=== PATIENT | female | born 1950 | race Hispanic/Latino ===

== ENCOUNTER 2018-02-21 10:38 | Outpatient (CLI) | payer MEDICARE ==
--- NOTE | 2018-02-21 14:17 | Mammography Report ---
LEFT DIGITAL DIAGNOSTIC MAMMOGRAM with CAD and LEFT BREAST ULTRASOUND: 02/21/18 10:38:00 CLINICAL: A left palpable breast lump. COMPARISON:07/11/17 and 07/09/16 mammograms FINDINGS: A 1.2 cm spiculated mass is new compared to the prior exam and is roughly in the vicinity of the palpable marker.No other mass, architectural distortion or suspicious calcifications. Ultrasound of the upper outer left breast was performed and demonstrated a heterogeneous solid hypoechoic irregular shadowing mass at 2 o'clock 5 cm from the nipple. It measures 1.0 x 0.8 x 0.7 cm and correlates with the mammographic mass. I could not detect a mass by palpation. Ultrasound of the left axilla demonstrated a lymph node with central fat and benign morphology measuring 1.3 x 0.6 x 0.9 cm. No suspicious lymph nodes. IMPRESSION: A highly suspicious 1 cm left breast mass at 2 o'clock 5 cm from the nipple. BI-RADS CATEGORY: 5 - - Highly Suggestive of Malignancy RECOMMENDATION: Ultrasound guided needle core biopsy of the left breast. I discussed the findings and the recommendation for needle core biopsy with the patient at the time of the examination. ACR BI-RADS MAMMOGRAPHIC CODES: 0 = Needs additional imaging evaluation; 1 = Negative; 2 = Benign; 3 = Probably benign; 4 = Suspicious; 5 = Malignant; 6 = Known biopsy-proven malignancy COMMENT: 1. Dense breast tissue, i.e., adenosis, fibrocystic changes, etc., may obscure an underlying neoplasm. 2. Approximately 10% of cancers are not detected with mammography. 3. A negative mammography report should not delay biopsy if a clinically suspicious mass is present. COMMENT: Patient follow-up letters are generated by our [employer] application.
== END 2018-02-21 10:39 | disposition home or self-care (01) ==
LOC: SPVWC 10:38
PROVIDERS: ATTEND Obstetrics & Gynecology
DX: R92.8 Other abnormal and inconclusive findings on diagnostic imaging of breast (principal)
CPT/HCPCS: 77066

== ENCOUNTER 2018-03-02 13:56 | Outpatient (CLI) | payer MEDICARE ==
--- NOTE | 2018-03-02 16:17 | Mammography Report ---
LEFT DIGITAL DIAGNOSTIC MAMMOGRAM: 03/02/18 13:56:00 CLINICAL: For clip placement immediately status post ultrasound biopsy. COMPARISON:Mass at 2 o'clock 5 cm from the nipple. FINDINGS: A biopsy clip is now identified at 2 o'clock correlating with the previously described mass. Injected lidocaine obscures the margins of the mass. IMPRESSION: Concordant clip placement status post ultrasound biopsy. BI-RADS CATEGORY: 4--Suspicious Pathology pending.
--- NOTE | 2018-03-02 16:18 | Ultrasound Report ---
ULTRASOUND GUIDED NEEDLE CORE BIOPSY LEFT BREAST WITH CLIP PLACEMENT: 03/02/18 CLINICAL: Mass at 2 o'clock 5 cm from the nipple. COMPARISON :02/21/18 FINDINGS: The procedure was explained to the patient and informed consent was obtained. Ultrasound demonstrated the previously described shadowing irregular 1 cm mass at 2 o'clock.. I marked the breast with a felt tip marker and a time out was called. The skin was prepped with Betadine and anesthetized with 1% lidocaine. Needle core biopsy was performed through a tiny dermatotomy using ultrasound guidance, 2% lidocaine with epinephrine for deep anesthesia and a 14-gauge Achieve biopsy device. 4 cores were obtained and placed in formalin. A hydro-xin clip was deployed within the mass. The patient tolerated the procedure well and there were no apparent complications. Hemostasis was achieved with minimal pressure and a sterile dressing was applied. A two view mammogram demonstrated concordant placement of the clip. She left the department in good condition and was given instructions for wound care and followup. IMPRESSION: Uncomplicated ultrasound guided needle core biopsy with clip placement left breast.
== END 2018-03-02 13:57 | disposition home or self-care (01) ==
LOC: SPVWC 13:56
PROVIDERS: ATTEND Obstetrics & Gynecology
DX: C50.912 Malignant neoplasm of unspecified site of left female breast (principal)
CPT/HCPCS: 88305; 88342; 88361

== ENCOUNTER 2018-03-20 15:24 | Outpatient (CLI) | payer MEDICARE ==
--- NOTE | 2018-03-21 09:38 | Magnetic Resonance Report ---
BILATERAL BREAST MRI WITHOUT AND WITH CONTRAST: 03/20/18 15:24:00 CLINICAL: Newly diagnosed left breast cancer. 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 COMPARISON:02/21/18 and 07/11/17 mammograms. TECHNIQUE: Axial 1.0-mm T1 without, axial high resolution 2.0-mm T2 and axial 1.0-mm dynamic Vibrant high-resolution postcontrast T1 fat saturation sequences on a 1.5 Malina magnet. The examination was performed with an 8 channel dedicated [place] breast coil. Post processing with CAD and subtraction was performed on an [employer] workstation. 18.0 cc of Multihance was injected without incident for the contrast portion of the exam. Consent was obtained prior to the administration of the contrast. FINDINGS: Right: Minimal background parenchymal enhancement. No mass or suspicious enhancement. No suspicious right axillary or right internal mammary lymph nodes. Left: Minimal background parenchymal enhancement. The known cancer is an irregular enhancing mass in the upper-outer quadrant 5.8 cm from the nipple measuring 17.1 x 13.9 x 8.5 mm. It demonstrates heterogeneous enhancement with mixed kinetics, 607% peak enhancement, 33% type I persistent, 64% type II plateau and 3% type III washout waveforms. A hydro-Jamarcus biopsy clip is identified adjacent to the mass. No other mass or suspicious enhancement. No suspicious left axillary or left internal mammary lymph nodes. IMPRESSION: Known 17.1 mm left breast cancer and no additional suspicious lesion of either breast. No suspicious lymph nodes. RIGHT BI-RADS 1 -- Negative LEFT BI-RADS 6 -- Known Cancer
== END 2018-03-20 15:25 | disposition home or self-care (01) ==
LOC: SPVIMAG 15:24
PROVIDERS: ATTEND Surgery
DX: C50.912 Malignant neoplasm of unspecified site of left female breast (principal)
CPT/HCPCS: A9577; C8908; 77059

== ENCOUNTER 2018-04-03 09:00 | Day surgery (SDC) | payer MEDICARE ==
[2018-04-03] MEDS ORDERED: NACL BACTERIOSTATIC INFILTRATI ONE (10:05)
[2018-04-03 10:26] LABS: Hematocrit 41.2 % (30.3-42.9); Hemoglobin 14.1 gm/dl (10.1-14.3)
[2018-04-03] MEDS ORDERED: ZOFRAN IV PRN (10:30)
[2018-04-03] MEDS ORDERED: TORADOL IV PRN (10:30)
[2018-04-03] MEDS ORDERED: DILAUDID IV PRN (10:30)
--- NOTE | 2018-04-03 10:30 | Anesthesia Consultation ---
Anesthesia Consult and Med Hx Date of service: 04/03/18 - Airway Anesthetic Teeth Evaluation: Good ROM Head & Neck: Adequate Mental/Hyoid Distance: Adequate Mallampati Class: Class II Intubation Access Assessment: Probably Good - Pulmonary Exam CTA: Yes - Cardiac Exam Cardiac Exam: RRR - Pre-Operative Health Status ASA Pre-Surgery Classification: ASA3 Proposed Anesthetic Plan: General Nerve Block: nerve block preop - Cardiovascular System Hx Hypertension: Yes - Central Nervous System Hx Psychiatric Problems: No - Endocrine Hx Non-Insulin Dependent Diabetes: Yes - Other Systems Hx Alcohol Use: Yes (OCCA) Hx Substance Use: No Hx Cancer: Yes (breast cancer)
[2018-04-03] MEDS ORDERED: XYLOCAINE 1% 20 mL ONE ×2 (10:34→17:30)
--- NOTE | 2018-04-03 10:59 | Procedure Note ---
Date of procedure: 04/03/18 Pre-op diagnosis: lt. breast lesion Post-op diagnosis: same Procedure: needle loc Findings: marker Anesthesia: local Surgeon: CHARY CHAVEZ Estimated blood loss: minimal Pathology: none Condition: stable Disposition: same day
[2018-04-03] MEDS ORDERED: ANCEF/STERILE WATER 2 GM/20 ML IV NR (11:00)
[2018-04-03] MEDS ORDERED: NACL 0.9% 1000 ML 1,000 ML IV SCH (11:00)
--- NOTE | 2018-04-03 11:05 | Mammography Report ---
Left breast needle localization: The patient presents with a marker in the lateral left breast. A lateral approach was utilized under mammographic grid technique. The skin was cleansed and 1% lidocaine used for local anesthesia. A 5 cm Santamaria needle was introduced using mammogram for position confirmation. A wire was introduced with removal of the needle and additional mammography to confirm position. Minimal bleeding at the entrance site was noted easily controlled with compression. No other complication.
--- NOTE | 2018-04-03 12:12 | Anesthesia Day of Surgery ---
Anesthesia Day of Surgery - Day of Surgery Patient Examined: Yes Patient H&P Reviewed: Yes Patient is NPO: Yes
--- NOTE | 2018-04-03 13:42 | Short Stay Summary ---
Short Stay Documentation Date of service: 04/03/18 - History H&P: obtained from office - Allergies and Medications Current Medications: Allergies benzoyl peroxide Allergy (Verified 03/31/18 13:26) Rash Home Medications Medication Instructions Recorded Confirmed Last Taken Type Atorvastatin Calcium 20 mg PO DAILY 03/31/18 04/03/18 03/31/18 History Cholecalciferol (Vitamin D3) 1,000 unit PO DAILY 03/31/18 04/03/18 03/27/18 History [Vitamin D3] Metformin HCl [Metformin HCl ER] 750 mg PO BID 03/31/18 04/03/18 03/30/18 History Active Medications Cefazolin Sodium (Ancef/Sterile Water 2 Gm/20 Ml) 2 gm IV PREOP NR Stop: 04/03/18 23:59 Hydromorphone HCl (Dilaudid) 0.5 mg IV Q10MIN PRN PRN Reason: Pain , Severe (7-10) Stop: 04/03/18 23:59 Sodium Chloride (Nacl 0.9% 1000 Ml) 1,000 mls @ 42 mls/hr IV DIRECT IVANNA Last Admin: 04/03/18 11:16 Dose: 42 mls/hr Ketorolac Tromethamine (Toradol) 30 mg IV ONCE PRN PRN Reason: Pain, Moderate (4-6) Ondansetron HCl (Zofran) 4 mg IV ONCE PRN PRN Reason: Nausea And Vomiting - Brief post op/procedure progress note Date of procedure: 04/03/18 Pre-op diagnosis: Left breast cancer of the upper outer quadrant Post-op diagnosis: same Procedure: Left needle localization partial mastectomy with SLNB Anesthesia: GETA Findings: Left wire and clip present; x1 SLN Surgeon: CECILE RAND Estimated blood loss: minimal Pathology: list (left partial mastectomy and SLNs x) Specimen disposition: to lab Condition: stable - Disposition Condition at discharge: Good Disposition: DC-01 TO HOME OR SELFCARE Short Stay Discharge Plan Activity: other (no heavy lifting) Diet: regular Wound: other (keep incision clean and dry; may shower in 24 hours; no baths, pools or lakes; do not rub or scrub incision; wear breast binder) Follow up with: MARGA HARRIS MD [Primary Care Provider] - 7 Days CECILE RAND MD [Staff Physician] - 7 Days Prescriptions: HYDROcodone/APAP 5-325 [[place] 5/325] 1 each PO Q6HR PRN #30 tablet PRN Reason: Pain
--- NOTE | 2018-04-03 13:45 | Operative Report ---
Operative Report Operative Report: April 03, 2018 Preoperative diagnosis: Left breast cancer of the upper outer quadrant Postoperative diagnosis: Same Procedure: Left needle localization partial mastectomy of the upper outer quadrant and SLNB Surgeon: Medina Hunt MD Anesthesia: General Findings: Left wire and clip present within radiograph specimen; x 1 SLN Complications: None EBL: Minimal Disposition: PACU in good condition Indications for operative procedure: This is a 67 year old lady with newly diagnosed left breast cancer of the upper outer quadrant, Stage I [id number] ER/ DE positive. Recommendations are to proceed with breast conservation. She understands the role of adjuvant radiation therapy and Oncotype DX will be obtained by Dr. Ramires. She wished to proceed with the above procedure. Procedure in detail: The patient was taken to radiology for wire placement for localization known area of cancer. Patient was then taken to the operating room. Gen. anesthesia was administered. The left nipple was injected with radioisotope. and 1 cc of metheleyne blue with 1 cc of saline. The left breast and axilla were prepped and draped in the normal sterile operative fashion. The wire was identified. Timeout was performed. Gamma probe was inserted into the axilla. The area of hot spot was identified. A left axillary incision was made with a 15 blade knife with dissection taken down to the subcutaneous tissues. The axillary fascia was opened with the Bovie cautery. 1 SLN was identified with blue dye present. All remaining counts were less than 10% of the highest count. Lymph nodes were sent to pathology for permanent processing. Hemostasis was obtained in the left axillary cavity. Axillary cavity was appropriately irrigated and suctioned. The axillary cavity was anesthetized with 1% lidocaine mixed with quarter percent Marcaine. Hemostasis was noted. Axillary fascia was approximated and closed using interrupted 3-0 Vicryl and the skin brought together and closed using a running 4-0 Monocryl followed by skin affix. Attention was then taken towards the left breast. Lateral breast incision was made with a 15 blade knife and dissection taken down to subcutaneous tissues. First began raising of the lateral flap with removal of the wire from the skin with dissection take down to the pectoralis muscle, followed by raising of the medial flap, superior flap and inferior flap with all flaps taken down to the pectoralis muscle. The breast area of concern was appropriately removed posteriorly from the pectoralis muscle with the aid of the Bovie cautery. The wire was not encountered. Specimen was marked and then sent to pathology and radiology; radiograph speciment with wire and clip present. Breast cavity was irrigated and hemostasis was obtained. The breast cavity was anesthetized with 1 % lidocaine mixed with quarter percent Marcaine. The posterior deep breast tissues were approximated and closed using interrupted 3-0 Vicryl. The subcutaneous tissues were approximated and closed using interrupted 3-0 Vicryl followed by closing of the skin with a running 4-0 Monocryl and skin affix. The patient tolerated surgery very well and she was awaken from anesthesia without any complication and transported to PACU in good condition.
[2018-04-03] MEDS ORDERED: D50W (25GM) Syringe IV ONE (15:09)
[2018-04-03] MEDS ORDERED: VERSED IV NR (16:00)
[2018-04-03] MEDS ORDERED: XYLOCAINE MPF 2% ONE (16:20)
[2018-04-03] MEDS ORDERED: DILAUDID ONE ×2 (16:20→18:37)
[2018-04-03] MEDS ORDERED: DIPRIVAN 10 MG/ML IV ONE (16:20)
[2018-04-03] MEDS ORDERED: METHYLENE BLUE ONE (17:31)
[2018-04-03] MEDS ORDERED: MARCAINE 0.25% INFILTRATI ONE ×2 (17:31→17:54)
[2018-04-03] MEDS ORDERED: XYLOCAINE 1% 20 mL INFILTRATI ONE (17:54)
[2018-04-03] MEDS ORDERED: ZOFRAN ONE (19:24)
[2018-04-03] MEDS ORDERED: NACL 0.9% 1000 ML 1,000 ML ONE (19:24)
[2018-04-03 21:34] VITALS: BP 157/78
--- NOTE | 2018-04-04 08:18 | XRay Report ---
SPECIMEN RADIOGRAPH LEFT BREAST: 04/03/18 09:00:00 CLINICAL: Surgical excision of a cancer. FINDINGS: The targeted lesion with a localizer clip and the hookwire are identified within the specimen. IMPRESSION: Excision of the targeted lesion.
== END 2018-04-03 09:01 | disposition home or self-care (01) ==
LOC: OR 09:00
PROVIDERS: ATTEND Surgery
DX: C50.412 Malignant neoplasm of upper-outer quadrant of left female breast (principal); I10 Essential (primary) hypertension; E11.9 Type 2 diabetes mellitus without complications; Z72.89 Other problems related to lifestyle; E78.5 Hyperlipidemia, unspecified; E55.9 Vitamin D deficiency, unspecified; Z79.84 Long term (current) use of oral hypoglycemic drugs; Z79.899 Other long term (current) drug therapy; Z88.8 Allergy status to other drugs, medicaments and biological substances; Z98.890 Other specified postprocedural states; Z80.3 Family history of malignant neoplasm of breast; Z82.49 Family history of ischemic heart disease and other diseases of the circulatory system; Z83.49 Family history of other endocrine, nutritional and metabolic diseases; Z80.0 Family history of malignant neoplasm of digestive organs
CPT/HCPCS: 19281; 19301; 36415; 38525; 38900; 76098; 82962; 85014; 85018; 88305; 88307; 88342; A9541; J0690; J1170; J2250; J2405; J2704; J7030; Q9968; 78800

== ENCOUNTER 2018-04-26 06:10 | Day surgery (SDC) | payer MEDICARE ==
[2018-04-26] MEDS ORDERED: DIPRIVAN 10 MG/ML IV ONE (07:12)
[2018-04-26] MEDS ORDERED: XYLOCAINE MPF 2% ONE (07:12)
[2018-04-26] MEDS ORDERED: ZOFRAN ONE (07:15)
[2018-04-26] MEDS ORDERED: DECADRON ONE (07:15)
[2018-04-26] MEDS ORDERED: DILAUDID ONE (07:15)
--- NOTE | 2018-04-26 07:43 | Anesthesia Day of Surgery ---
Anesthesia Day of Surgery - Day of Surgery Patient Examined: Yes Patient H&P Reviewed: Yes Patient is NPO: Yes
--- NOTE | 2018-04-26 07:44 | Anesthesia Consultation ---
Anesthesia Consult and Med Hx Date of service: 04/26/18 - Airway Anesthetic Teeth Evaluation: Good ROM Head & Neck: Adequate Mental/Hyoid Distance: Adequate Mallampati Class: Class I Intubation Access Assessment: Good - Pulmonary Exam CTA: Yes - Cardiac Exam Cardiac Exam: RRR - Pre-Operative Health Status ASA Pre-Surgery Classification: ASA3 Proposed Anesthetic Plan: General (GA with LMA ok, pt is diabetic, denies issues with GERD) - Cardiovascular System Hx Hypertension: Yes - Central Nervous System Hx Psychiatric Problems: No - Endocrine Hx Non-Insulin Dependent Diabetes: Yes - Other Systems Hx Alcohol Use: Yes (OCCA) Hx Substance Use: No Hx Cancer: Yes
[2018-04-26] MEDS ORDERED: ZOFRAN IV PRN (08:00)
[2018-04-26] MEDS ORDERED: ANCEF/STERILE WATER 2 GM/20 ML IV NR (08:00)
[2018-04-26] MEDS ORDERED: TORADOL IV PRN (08:00)
[2018-04-26] MEDS ORDERED: VERSED IV NR (08:00)
[2018-04-26] MEDS ORDERED: DILAUDID IV PRN (08:00)
[2018-04-26] MEDS ORDERED: LACTATED RINGERS 1,000 ML IV SCH (08:00)
[2018-04-26] MEDS ORDERED: XYLOCAINE 1% 20 mL ONE (08:05)
[2018-04-26] MEDS ORDERED: MARCAINE 0.25% INFILTRATI ONE ×3 (08:05→09:02)
[2018-04-26] MEDS ORDERED: XYLOCAINE 1% 20 mL INFILTRATI ONE ×2 (09:02)
[2018-04-26] MEDS ORDERED: WATER FOR IRRIG STERILE IR ONE (09:02)
--- NOTE | 2018-04-26 09:50 | Short Stay Summary ---
Short Stay Documentation Date of service: 04/26/18 - History H&P: obtained from office - Allergies and Medications Current Medications: Allergies benzoyl peroxide Allergy (Verified 04/24/18 11:13) Rash Home Medications Medication Instructions Recorded Confirmed Last Taken Type Atorvastatin Calcium 20 mg PO DAILY 03/31/18 04/26/18 1 Week Ago History ~04/19/18 Cholecalciferol (Vitamin D3) 1,000 unit PO DAILY 03/31/18 04/26/18 2 Weeks Ago History [Vitamin D3] ~04/12/18 Metformin HCl [Metformin HCl ER] 750 mg PO BID 03/31/18 04/26/18 1 Week Ago History ~04/19/18 HYDROcodone/APAP 5-325 [[place] 1 each PO Q6HR PRN #30 tablet 04/03/18 04/26/18 1 Week Ago Rx 5/325] ~04/19/18 Active Medications Cefazolin Sodium (Ancef/Sterile Water 2 Gm/20 Ml) 2 gm IV PREOP NR Stop: 04/26/18 15:00 Hydromorphone HCl (Dilaudid) 0.5 mg IV Q10MIN PRN PRN Reason: Pain , Severe (7-10) Stop: 04/26/18 15:00 Lactated Ringer's (Lactated Ringers) 1,000 mls @ 100 mls/hr IV DIRECT IVANNA Last Admin: 04/26/18 07:49 Dose: 100 mls/hr Ketorolac Tromethamine (Toradol) 30 mg IV ONCE PRN PRN Reason: Pain, Moderate (4-6) Stop: 04/26/18 13:00 Midazolam HCl (Versed) 2 mg IV PREOP NR Stop: 04/26/18 23:59 Last Admin: 04/26/18 07:51 Dose: 2 mg Ondansetron HCl (Zofran) 4 mg IV ONCE PRN PRN Reason: Nausea And Vomiting Stop: 04/26/18 15:00 - Brief post op/procedure progress note Date of procedure: 04/26/18 Pre-op diagnosis: Left breast cancer of the lower outer quadrant, close margin Post-op diagnosis: same Procedure: Left breast margin revision Anesthesia: GETA Findings: Left inferior breast margin revision Surgeon: CECILE RAND Estimated blood loss: minimal Pathology: list (left inferior margin revision) Specimen disposition: to lab Condition: stable - Disposition Condition at discharge: Good Disposition: DC-01 TO HOME OR SELFCARE Short Stay Discharge Plan Activity: other (no heavy lifting) Diet: regular Wound: other (keep incision clean and dry, may shower in 30 hours; no baths, pools or lakes; do not rub or scrub incision; wear breast binder or sports bra) Follow up with: MARGA HARRIS MD [Primary Care Provider] - 7 Days CECILE RAND MD [Staff Physician] - 7 Days
--- NOTE | 2018-04-26 09:54 | Operative Report ---
Operative Report Operative Report: Operative Report Operative Report: Date of Service: April 26, 2018 Preoperative diagnosis: Left breast cancer of the lower outer quadrant with close inferior margin Postoperative diagnosis: Same Procedure: Left breast margin revision of the inferior margin Surgeon: Medina Hunt M.D. Anesthesia: Gen. Findings: Inferior margin revised Complications: None Drains: None Estimated blood loss: Minimal Indications for operative procedure: This is a 67-year-old lady with stage I left breast cancer of the lower outer quadrant who recently underwent left partial mastectomy with sentinel lymph node biopsy with findings of inferior margin of DCIS 1.1 mm margin. Recommendations are to proceed with inferior margin revision. Patient wished to proceed with the above procedure. Procedure in detail: The patient was taken to the operating room. Genernal anesthesia was administer. The left breast was prepped and draped in the normal sterile operative fashion. A skin incision was made at prior left lower outer quadrant breast incision. Subcutuaneous tissues were opened. Seroma cavity was encountered and drained. Inferior margin was revised. The breast cavity was anesthetized with 1% lidocaine mixed with quarter percent Marcaine. The posterior breast tissues were approximated and closed using interrupted 3-0 Vicryl and skin brought together nicely and closed using a running 4-0 Monocryl followed by skin affix. She tolerated surgery very well and was awakened from anesthesia without any complications and transferred to PACU in good condition.
[2018-04-26] MEDS ORDERED: NORCO 7.5/325 PO PRN (10:30)
[2018-04-26 10:46] VITALS: BP 137/75
--- NOTE | 2018-04-26 16:52 | Post Anesthesia Evaluation ---
- Post Anesthesia Evaluation Patient Participated: Yes Airway Patent: Yes Stable Respiratory Function: Yes Nausea/Vomiting: No Temp > 96.8F: Yes Pain Manageable: Yes Adequeate Hydration: Yes Anesthesia Complications: No
== END 2018-04-26 11:04 | disposition home or self-care (01) ==
LOC: OR 06:10
PROVIDERS: ATTEND Surgery
DX: N64.1 Fat necrosis of breast (principal); C50.512 Malignant neoplasm of lower-outer quadrant of left female breast; I10 Essential (primary) hypertension; E11.9 Type 2 diabetes mellitus without complications; Z79.899 Other long term (current) drug therapy; Z88.8 Allergy status to other drugs, medicaments and biological substances; Z90.12 Acquired absence of left breast and nipple; Z79.84 Long term (current) use of oral hypoglycemic drugs; Z72.89 Other problems related to lifestyle; Z98.890 Other specified postprocedural states; Z87.440 Personal history of urinary (tract) infections
CPT/HCPCS: 19301; 82962; 88307; J0690; J1100; J1170; J1885; J2250; J2405; J2704; J7120

== ENCOUNTER 2018-11-23 11:48 | Outpatient (CLI) | payer MEDICARE ==
--- NOTE | 2018-11-23 16:00 | Mammography Report ---
BONE DEXA:11/23/18 11:48:00 CLINICAL: Postmenopausal and history of left breast cancer.On Letrozole. TECHNIQUE: Two site bone DEXA performed on an Hologic scanner. FINDINGS: The average BMD of the lumbar spine L1-L4 is 1.044g/cm squared with a T-score of 0 and a Z-score of +1.1. The average BMD of the left hip is 0.885g/cm squared with a T-score of -0.5 and a Z-score of 0.1. IMPRESSION: WHO classification: Normal with average fracture risk based on the spine and left hip measurements. RECOMMENDATION: Clinical correlation and routine screening. DEFINITIONS: BMD = Bone Mineral Density T-score = BMD related to mean peak bone mass of young adult (mean expressed in Standard Deviation) Z-score = Age matched BMD expressed in SD World Health Organization (WHO) Diagnostic Criteria Normal T-score > -1 SD Osteopenia T-score between -1 and -2.4 SD Osteoporosis T-score -2.5 SD or below NOTE: BMD is not the only risk factor for fracture. One should also consider factors such as the patient's age, risk of falling, previous osteoporotic fracture, family history of osteoporotic fractures, current smoker, and low body weight. Z-scores are not calculated if >80 years of age.
== END 2018-11-23 11:49 | disposition home or self-care (01) ==
LOC: MAMMO 11:48 → SPVWC 11:48 → MAMMO 11:49
PROVIDERS: ATTEND Internal Medicine Hematology
DX: C50.512 Malignant neoplasm of lower-outer quadrant of left female breast (principal); I10 Essential (primary) hypertension; E11.9 Type 2 diabetes mellitus without complications; Z78.0 Asymptomatic menopausal state
CPT/HCPCS: 77080

== ENCOUNTER 2020-09-18 10:05 | Outpatient (CLI) | payer MEDICARE ==
--- NOTE | 2020-09-18 16:15 | Mammography Report ---
DIGITAL SCREENING MAMMOGRAM WITH CAD, 09/18/2020 CLINICAL INFORMATION / INDICATION: Routine screening mammography. TECHNIQUE: Digital bilateral 2D mammography was obtained in the craniocaudal and mediolateral obliqu e projections. This examination was interpreted with the benefit of Computer-Aided Detection analysis . COMPARISON: 09/10/2019 FINDINGS: Breast Density: There are scattered areas of fibroglandular density. No dominant mass, suspicious calcifications, or architectural distortion in either breast. Left surgical changes are stable. IMPRESSION: No mammographic evidence of malignancy. Follow up recommendation: Routine yearly BI-RADS Category 2: Benign. A "normal" or negative report should not discourage follow up or biopsy of a clinically significant f inding. A written summary of these findings will be mailed to the patient. The patient will be entered into a mammography reporting system which will generate a reminder letter for the patient's next appointmen t at the appropriate interval. The [employer] recommends yearly mammograms starting at age 40 and continuing as l radha as a woman is in good health. Breast MRI is recommended for women with an approximate 20-25% or greater lifetime risk of breast cancer, including women with a strong family history of breast or ova garcia cancer or who have been treated for Hodgkin's disease. Signer Name: Julian Barcenas MD Signed: 09/18/2020 4:10 PM Workstation Name: [id number]
== END 2020-09-18 10:06 | disposition home or self-care (01) ==
LOC: SPVWC 10:05
PROVIDERS: ATTEND Surgery
DX: Z12.31 Encounter for screening mammogram for malignant neoplasm of breast (principal)
CPT/HCPCS: 77067

== ENCOUNTER 2021-10-20 11:53 | Outpatient (CLI) | payer MEDICARE ==
--- NOTE | 2021-10-20 14:24 | Mammography Report ---
DIGITAL SCREENING MAMMOGRAM WITH CAD, 10/20/2021 CLINICAL INFORMATION / INDICATION: Routine screening mammography. TECHNIQUE: Digital bilateral 2D mammography was obtained in the craniocaudal and mediolateral obliqu e projections. This examination was interpreted with the benefit of Computer-Aided Detection analysis . COMPARISON: 09/18/2020, 09/10/2019 FINDINGS: Breast Density: There are scattered areas of fibroglandular density. No dominant mass, suspicious calcifications, or architectural distortion in either breast. Postlumpectomy/radiation change left breast. Overall, no interval change in the appearance of the graham mogram. IMPRESSION: No mammographic evidence of malignancy. Follow up recommendation: Routine yearly BI-RADS Category 2: BENIGN. A "normal" or negative report should not discourage follow up or biopsy of a clinically significant f inding. A written summary of these findings will be mailed to the patient. The patient will be entered into a mammography reporting system which will generate a reminder letter for the patient's next appointmen t at the appropriate interval. The [employer] recommends yearly mammograms starting at age 40 and continuing as l radha as a woman is in good health. Breast MRI is recommended for women with an approximate 20-25% or greater lifetime risk of breast cancer, including women with a strong family history of breast or ova garcia cancer or who have been treated for Hodgkin's disease. Signer Name: Aleah King MD Signed: 10/20/2021 2:20 PM Workstation Name: [id number]
== END 2021-10-20 11:54 | disposition home or self-care (01) ==
LOC: SPVWC 11:53
PROVIDERS: ATTEND Surgery
DX: Z12.31 Encounter for screening mammogram for malignant neoplasm of breast (principal)
CPT/HCPCS: 77067